=== PATIENT | male | born 1935 | race Caucasian/White ===

== ENCOUNTER 2020-09-05 23:54 | Day surgery (SDCO) | payer MEDICARE, OTHER ==
[2020-09-06 00:21] LABS: BASOPHIL 0.5 % (0-2); EOSINOPHIL 2.1 % (0-7); HCT 36.8 % (42.0-52.0); HGB 11.8 g/dl (13.2-18.0); LYMPHOCYTE 39.6 % (15-48); MCH 30.5 pg (25.0-31.0); MCHC 32.1 g/dL (32.0-36.0); MCV 95.1 fL (78.0-100.0); MONOCYTE 6.1 % (0-12); MPV 10.3 fL (6.0-9.5); NEUTROPHIL 51.2 % (41-80); NRBC 0; PLT 269 K/uL (150-400); RBC 3.87 M/uL (4.70-6.00); RDW 14.5 % (11.5-14.0); WBC 12.7 K/uL (4.0-10.5)
[2020-09-06 00:28] LABS: INR 1.2 (0.9-1.2); PROTHROMBIN TIME 14.6 SECONDS (11.8-13.4); PTT 26.2 SECONDS (24.4-34.7)
[2020-09-06 00:29] LABS: D-DIMER 1.04 ug/mLFEU (0.00-0.41)
[2020-09-06 00:33] LABS: ALBUMIN 2.6 g/dL (3.4-5.0); BILIRUBIN - TOTAL 0.4 mg/dL (0.2-1.0); CREATININE 2.89 mg/dL (0.67-1.17); GLOBULIN (CALCULATION) 3.7 g/dL; TOTAL PROTEIN 6.3 g/dL (6.4-8.2)
[2020-09-06 00:42] LABS: LACTIC ACID 7.1 mmol/L (0.4-1.9)
[2020-09-06 01:30] LABS: BILIRUBIN NEGATIVE (NEGATIVE); BLOOD TRACE-INTACT Ery/uL (NEGATIVE); CLARITY CLEAR (CLEAR); COLOR YELLOW (YELLOW); GLUCOSE (U) NORMAL (NORMAL); LEUKOCYTES 3+ Leu/uL (NEGATIVE); NITRITE NEGATIVE (NEGATIVE); PROTEIN NEGATIVE (NEGATIVE); SPECIFIC GRAVITY 1.015 (1.001-1.030); UROBILINOGEN 0.2 mg/dL (0.2-1.0); pH 6.5 (5.0-9.0)
[2020-09-06 01:33] LABS: BACTERIA 2+; URINARY WBC TNTC
--- NOTE | 2020-09-06 05:24 | NUR ---
PT DURING TRANSFER TO UNIT RIGHT AFTER TRANSFER TO BED.
--- NOTE | 2020-09-06 05:33 | NUR ---
FLOYD RIDER I.Shanna #: [id number]
--- NOTE | 2020-09-06 06:29 | NUR ---
DIANA WAS PAGED AND NOTIFIED THEY WERE NOT NEEDED, FAMILY HAS ALREADY LEFT
--- NOTE | 2020-09-06 10:25 | NUR ---
09/06/20 Please consider full admit or discharge. Thank You.
--- NOTE | 2020-09-06 10:54 | NUR ---
HOME PICKED UP PT AT [phone]
== END 2020-09-06 04:50 | disposition expired ==
LOC: FER 23:54 → FMS 09-06 03:37
PROVIDERS: Emergency Medicine Emergency Medical Services; ADMIT Internal Medicine
DX: I21.3 ST elevation (STEMI) myocardial infarction of unspecified site (principal); I63.511 Cerebral infarction due to unspecified occlusion or stenosis of right middle cerebral artery; R41.82 Altered mental status, unspecified; E11.22 Type 2 diabetes mellitus with diabetic chronic kidney disease; N18.4 Chronic kidney disease, stage 4 (severe); J98.11 Atelectasis; N26.1 Atrophy of kidney (terminal); F03.90 Unspecified dementia, unspecified severity, without behavioral disturbance, psychotic disturbance, mood disturbance, and anxiety; Z88.0 Allergy status to penicillin; Z20.822 Contact with and (suspected) exposure to COVID-19
CPT/HCPCS: 36415; 36600; 70450; 71045; 71275; 72193; 80053; 81001; 82803; 83605; 83690; 83880; 84484; 85025; 85379; 85610; 85730; 87088; 93005; G0378; J1265; U0002